=== PATIENT | female | born 1965 | race Caucasian/White ===

== ENCOUNTER 2019-07-19 09:23 | Emergency (ER) | payer OTHER ==
[~2019-07-19] VITALS: Ht 175 cm; Wt 80.4 kg
[2019-07-19] MEDS ORDERED: NS IV 1000 ML 1,000 ML IV SCH (10:05)
[2019-07-19] MEDS ORDERED: ONDANSETRON 4 MG/2 ML (SDV) Z0FRAN IVP ONE (10:15)
[2019-07-19] MEDS ORDERED: ACETAMINOPHEN 325 MG TABLET PO ONE (10:15)
--- NOTE | 2019-07-19 10:31 | Diagnostic Imaging Report ---
INDICATION: Hypertension. FINDINGS: Cardiomediastinal and hilar contours are normal. The lungs are clear. No pleural abnormality. No free air beneath the diaphragms. IMPRESSION: Negative. Dictated by: Dictated on workstation # [id number]
--- NOTE | 2019-07-19 10:49 | ED General ---
General Chief Complaint: General Problems/Pain Stated Complaint: ELEV BP History of Present Illness Date Seen by Provider: Jul 19, 2019 Time Seen by Provider: 09:50 Initial Comments The patient is a 54-year-old female with a history of hypertension who presents with multiple concerns today. She was sent over from the [facility] clinic for evaluation of elevated blood pressure however her blood pressure is not significantly elevated here. The patient's primary issue is lightheadedness and fatigue which has been present over at least the last week. She states she gets worn out walking around and feels lightheaded and as though she will faint, although she does not do so. Lightheadedness occurs in the setting of recent new prescriptions for multiple antihypertensive agents. Within the past few weeks the patient has been started on both nebivolol and lisinopril and was also briefly on hydrochlorothiazide which made her feel even more unwell and so it was discontinued. Per clinic notes she was on HCTZ initially, then was switched to Lisinopril 20mg daily a couple of weeks ago, upped to 40mg daily about a week ago and started on nebivolol 5mg daily 5 days ago in [facility] clinic. Before a few weeks ago she was not on any medications for her long-standing chronic hypertension. A few days ago the patient was in [place] and had a headache and felt more lightheaded than usual and went to an emergency department in that state where workup including labs and imaging was reportedly reassuring and the patient was given some IV labetalol and her lisinopril was increased to 40 mg daily from 20mg daily. Patient followed up in the office at [facility] on 07/15, 5 days ago, when nebivolol was started as a second agent for BP control. Patient has a secondary complaint of rather profuse watery diarrhea over the last week, about 8-10 episodes per day, in the setting of 2 successive rounds of antibiotics for dental infection. Over the past several weeks she has been on a course of amoxicillin and just a day or 2 ago completed a course of Augmentin. Her teeth are not bothering her anymore than usual today. There is associated quite intermittent right upper quadrant abdominal discomfort which the patient describes as "gallbladder attacks" when I ask her if she has any known gallstones she denies this and states she just assumed the problem was related to her gallbladder. She denies associated fevers, hematemesis, hematochezia, melena, headache since a week ago in [place], focal weakness, numbness, tingling, neck stiffness/pain/meningismus, vision changes, shortness of breath or chest pain of any kind, flank pain, back pain, dysuria or hematuria. Vital signs are generally appropriate here and clinically on initial evaluation patient is noted to have rather dry mucous membranes. Allergies and Home Medications Allergies Coded Allergies: Sulfa (Sulfonamide Antibiotics) (Verified Adverse Reaction, Unknown, nausea, 07/19/19) Patient Home Medication List Home Medication List Reviewed: Yes Review of Systems Review of Systems Constitutional: see HPI All Other Systems Reviewed Negative Unless Noted: Yes (Negative excepted noted.) Past Twhnxfn-Junzwc-Hskeiy Hx Past Med/Social Hx: Reviewed Nursing Past Med/Soc Hx Patient Social History Recent Foreign Travel: No Contact w/Someone Who Travel: No Family Medical History Reviewed Nursing Family Hx Physical Exam Vital Signs Vital Signs - First Documented 07/19/19 09:49 Temp 36.3 Pulse 67 Resp 16 B/P (MAP) 169/88 (115) Pulse Ox 100 Capillary Refill : Height, Weight, BMI Height: '" Weight: lbs. oz. kg; BMI Method: General Appearance: No Apparent Distress Comments This is an older female appearing nontoxic and in no acute distress. Head is normocephalic and atraumatic. Neck is supple and nontender. Oropharynx is mildly tacky with dry, cracked lips noted. Lungs are clear to auscultation at all stations. There is a normal S1 and S2 without rubs or gallops and capillary refill is appropriate, less than 2 seconds globally. Abdomen is soft, nondistended with very mild right upper quadrant tenderness without rebound or guarding. Skin is warm and dry without cyanosis, clubbing or edema. There is no dependent peripheral edema noted anywhere. Psychiatrically, the patient demonstrates appropriate mood and affect and is alert. Neurologically, patient moves all extremities equally, ambulated in with a narrow, steady gait and no lateralizing deficits are grossly noted. She is alert and oriented 4. Progress/Results/Core Measures Suspected Sepsis SIRS Temperature: Pulse: Respiratory Rate: Laboratory Tests 07/19/19 10:52: White Blood Count 9.1 Blood Pressure / Mean: Laboratory Tests 07/19/19 10:52: Creatinine 0.75, Platelet Count 346, Total Bilirubin 0.5 Results/Orders Lab Results Laboratory Tests Test 07/19/19 10:37 07/19/19 10:52 Range/Units Urine Color YELLOW Urine Clarity CLEAR Urine pH 7.5 5-9 Urine Specific [place] 1.010 L 1.016-1.022 Urine Protein NEGATIVE NEGATIVE Urine Glucose (UA) NEGATIVE NEGATIVE Urine Ketones NEGATIVE NEGATIVE Urine Nitrite NEGATIVE NEGATIVE Urine Bilirubin NEGATIVE NEGATIVE Urine Urobilinogen 0.2 < = 1.0 MG/DL Urine Leukocyte Esterase 1+ H NEGATIVE Urine RBC (Auto) TRACE H NEGATIVE Urine RBC 0-2 /HPF Urine WBC 5-10 H /HPF Urine Squamous Epithelial Cells 2-5 /HPF Urine Crystals NONE /LPF Urine Bacteria TRACE /HPF Urine Casts NONE /LPF Urine Mucus NEGATIVE /LPF Urine Culture Indicated YES Urine Test NEGATIVE NEGATIVE White Blood Count 9.1 4.3-11.0 10^3/uL Red Blood Count 5.26 4.35-5.85 10^6/uL Hemoglobin 15.5 11.5-16.0 G/DL Hematocrit 46 35-52 % Mean Corpuscular Volume 88 80-99 FL Mean Corpuscular Hemoglobin 29 25-34 PG Mean Corpuscular Hemoglobin Concent 33 32-36 G/DL Red Cell Distribution Width 13.7 10.0-14.5 % Platelet Count 346 130-400 10^3/uL Mean Platelet Volume 8.9 7.4-10.4 FL Neutrophils (%) (Auto) 71 42-75 % Lymphocytes (%) (Auto) 22 12-44 % Monocytes (%) (Auto) 6 0-12 % Eosinophils (%) (Auto) 1 0-10 % Basophils (%) (Auto) 0 0-10 % Neutrophils # (Auto) 6.5 1.8-7.8 X 10^3 Lymphocytes # (Auto) 2.0 1.0-4.0 X 10^3 Monocytes # (Auto) 0.6 0.0-1.0 X 10^3 Eosinophils # (Auto) 0.1 0.0-0.3 10^3/uL Basophils # (Auto) 0.0 0.0-0.1 10^3/uL Sodium Level 140 135-145 MMOL/L Potassium Level 4.3 3.6-5.0 MMOL/L Chloride Level 100 98-107 MMOL/L Carbon Dioxide Level 25 21-32 MMOL/L Anion Gap 15 H 5-14 MMOL/L Blood Urea Nitrogen 9 7-18 MG/DL Creatinine 0.75 0.60-1.30 MG/DL Estimat Glomerular Filtration Rate > 60 BUN/Creatinine Ratio 12 Glucose Level 100 70-105 MG/DL Calcium Level 10.3 H 8.5-10.1 MG/DL Corrected Calcium 9.9 8.5-10.1 MG/DL Total Bilirubin 0.5 0.1-1.0 MG/DL Aspartate Amino Transf (AST/SGOT) 15 5-34 U/L Alanine Aminotransferase (ALT/SGPT) 16 0-55 U/L Alkaline Phosphatase 43 40-136 U/L Troponin I < 0.30 <0.30 NG/ML Total Protein 8.0 6.4-8.2 GM/DL Albumin 4.5 3.2-4.5 GM/DL Lipase 98 H 8-78 U/L My Orders Orders - JOÃO ALEMAN MD Cbc With Automated Diff (07/19/19 10:05) Comprehensive Metabolic Panel (07/19/19 10:05) Lipase (07/19/19 10:05) Troponin I Fs (07/19/19 10:05) Ekg Tracing (07/19/19 10:05) Chest 1 View Ap/Pa Only (07/19/19 10:05) Ua Culture If Indicated (07/19/19 10:05) Hcg,Qualitative Urine (07/19/19 10:05) Stool Culture (07/19/19 10:05) C Difficile Ag + Toxin A/B. (07/19/19 10:05) Us Gallbladder [id number] (07/19/19 10:05) Ed Iv/Invasive Line Start (07/19/19 10:05) Ns Iv 1000 Ml (Sodium Chloride 0.9%) (07/19/19 10:05) Ondansetron Injection (Zofran Injectio (07/19/19 10:15) Acetaminophen Tablet/Caplet (Tylenol T (07/19/19 10:15) Fecal Wbc (07/19/19 10:07) Parasite Scrn Stool Giard Cryp (07/19/19 10:07) Rotavirus Antigen (07/19/19 10:07) Urine Culture (07/19/19 10:37) Medications Given in ED Current Medications Medications Dose Ordered Sig/Da Route Start Time Stop Time Status Last Admin Dose Admin Acetaminophen 975 mg ONCE ONCE PO 07/19/19 10:15 07/19/19 10:16 DC 07/19/19 11:24 975 MG Ondansetron HCl 4 mg ONCE ONCE IVP 07/19/19 10:15 07/19/19 10:16 DC 07/19/19 11:24 4 MG Vital Signs/I&O 07/19/19 09:49 Temp 36.3 Pulse 67 Resp 16 B/P (MAP) 169/88 (115) Pulse Ox 100 Capillary Refill : Progress Note : Time: 10:52 Progress Note Well-appearing 54yo female who appears clinically somewhat dehydrated who presents with concern for lightheadedness and fatigue in the setting of multiple new prescriptions for antihypertensive medications; she is currently on nebivolol and lisinopril. She has also been having rather copious watery diarrhea over at least the last week in the setting of 2 recent prescriptions for antibiotics for dental infection. Also incidentally noting rather elevated blood pressures on an ongoing basis but blood pressure not significantly elevated here and no signs or symptoms of acute end organ damage at this time. Overall impression is symptomatic lightheadedness secondary to new antihypertensive medications and diarrhea. We'll place IV and give IV fluids and medication for discomfort and nausea and will check labs, EKG, chest x-ray and a right upper quadrant ultrasound to further evaluate the patient's intermittent right upper quadrant discomfort, though rather low suspicion for acute cholecystitis or other acute process at this time. Will send stool studies to rule out C. difficile given recent antibiotic use. If workup is reassuring and the patient feels better, plan will be for discharge and referral back to clinic for very close follow-up of all of the above issues. Patient understands and agrees with this plan of care. Update 1215: Patient is resting comfortably in no acute distress upon reassessment and feels much, much better after 2 L of IV fluids here in the emergency department. Large workup is unremarkable for any evidence of acute process aside from possible evidence of mild urinary tract infection which we will treat with Macrobid. Stool studies not back at this time, as anticipated. Low suspicion for C. difficile at this time. We'll go ahead and prescribe some loperamide for diarrhea and refer the patient back to primary care clinic for very close follow-up, either later today or on Monday, for reevaluation of blood pressure and further care. We'll prescribe some Zofran for nausea. She is counseled to keep a blood pressure log until her primary care visit. The patient understands that if she feels worse is that of better or develops other new symptoms of concern that she should return to the emergency department right away for reevaluation. All questions are answered. ECG Comment Sinus rhythm, rate 64, no acute ST elevation or depression, IA 153, QRS 93, QTC 426, EP interpretation. Diagnostic Imaging Comments CHEST 1 VIEW AP/PA ONLY INDICATION: Hypertension. FINDINGS: Cardiomediastinal and hilar contours are normal. The lungs are clear. No pleural abnormality. No free air beneath the diaphragms. IMPRESSION: Negative. Dictated on workstation # [id number] PROCEDURE: US Gallbladder. TECHNIQUE: Multiple real-time grayscale images were obtained over the right upper quadrant in various projections. INDICATION: Elevated blood pressure FINDINGS: The liver parenchyma appeared normal. Patent hepatopetal directional portal venous flow confirmed. The gallbladder appeared normal. There is no intra or extrahepatic bile duct dilatation. At the level of the right renal pelvis there is a 1.7 cm shadowing stone without proximal hydronephrosis. The unobstructed right kidney appeared otherwise normal in size, cortical thickness and echotexture measuring 11.7 cm. The visualized portions of the pancreas unremarkable. Portions of its distal tail and lower head are obscured by gas. No ascites, no fluid collection. The visualized portions of aorta nonaneurysmal. IMPRESSION: 1.7 cm right renal calculus without hydronephrosis. No hepatobiliary abnormality or ascites. Dictated on workstation # [id number] Departure Impression Primary Impression: Lightheadedness Additional Impressions: Diarrhea Qualified Codes: R19.7 - Diarrhea, unspecified Dehydration Acute cystitis without hematuria Disposition: HOME, SELF-CARE Condition: Improved Departure-Patient Inst. Referrals: SELF,LULA BECKHAM (PCP/Family) Primary Care Physician Patient Instructions: Urinary Tract Infection, Adult (DC), Dehydration, Adult (DC), Diarrhea in Adolescents and Adults Add. Discharge Instructions: Please follow up with your primary care physician in the clinic in the next 2-4 days as discussed. We are going to try to make you a follow-up appointment. You will need to readdress her blood pressure management as well as your other symptoms with your doctor. Please use the medication as prescribed for diarrhea and nausea. Drink plenty of fluids. We will contact you if your stool studies are positive for anything which needs to be treated. Return to the emergency department right away with worsening symptoms or other new concerns. Scripts Nitrofurantoin Monohyd/M-Cryst (Macrobid 100 mg Capsule) 100 Mg Capsule 1 TAB PO BID, #10 CAP Prov: JOÃO ALEMAN MD 07/19/19 Ondansetron (Ondansetron Odt) 4 Mg Tab.rapdis 4 MG PO Q8H for nausea, #10 TAB Prov: JOÃO AELMAN MD 07/19/19 Loperamide HCl (Loperamide) 2 Mg Tablet 2 MG PO Q4H for Diarrhea, #10 TAB Prov: JOÃO ALEMAN MD 07/19/19 JOÃO ALEMAN MD Jul 19, 2019 10:49
--- NOTE | 2019-07-19 10:56 | Diagnostic Imaging Report ---
PROCEDURE: US Gallbladder. TECHNIQUE: Multiple real-time grayscale images were obtained over the right upper quadrant in various projections. INDICATION: Elevated blood pressure FINDINGS: The liver parenchyma appeared normal. Patent hepatopetal directional portal venous flow confirmed. The gallbladder appeared normal. There is no intra or extrahepatic bile duct dilatation. At the level of the right renal pelvis there is a 1.7 cm shadowing stone without proximal hydronephrosis. The unobstructed right kidney appeared otherwise normal in size, cortical thickness and echotexture measuring 11.7 cm. The visualized portions of the pancreas unremarkable. Portions of its distal tail and lower head are obscured by gas. No ascites, no fluid collection. The visualized portions of aorta nonaneurysmal. IMPRESSION: 1.7 cm right renal calculus without hydronephrosis. No hepatobiliary abnormality or ascites. Dictated by: Dictated on workstation # [id number]
[2019-07-19 11:30] LABS: BASOPHILS % (AUTO) 0 % (0-10); EOSINOPHILS # (AUTO) 0.1 10^3/uL (0.0-0.3); EOSINOPHILS % (AUTO) 1 % (0-10); HEMATOCRIT 46 % (35-52); HEMOGLOBIN 15.5 G/DL (11.5-16.0); LYMPHOCYTES % (AUTO) 22 % (12-44); MEAN CORPUSCULAR HEMOGLOBIN 29 PG (25-34); MEAN CORPUSCULAR HGB CONC 33 G/DL (32-36); MEAN CORPUSCULAR VOLUME 88 FL (80-99); MEAN PLATELET VOLUME 8.9 FL (7.4-10.4); MONOCYTES # (AUTO) 0.6 X 10^3 (0.0-1.0); MONOCYTES % (AUTO) 6 % (0-12); NEUTROPHILS # (AUTO) 6.5 X 10^3 (1.8-7.8); NEUTROPHILS % (AUTO) 71 % (42-75); PLATELET COUNT 346 10^3/uL (130-400); RED CELL DISTRIBUTION WIDTH 13.7 % (10.0-14.5); WHITE BLOOD COUNT 9.1 10^3/uL (4.3-11.0)
[2019-07-19 11:38] LABS: CLARITY,URINE CLEAR; COLOR,URINE YELLOW; PH,URINE 7.5 (5-9)
[2019-07-19 11:39] LABS: BACTERIA,URINE TRACE /HPF; BILIRUBIN,URINE NEGATIVE (NEGATIVE); GLUCOSE, URINE (UA) NEGATIVE (NEGATIVE); KETONES,URINE NEGATIVE (NEGATIVE); LEUKOCYTE ESTERASE ,URINE 1+ (NEGATIVE); NITRITE,URINE NEGATIVE (NEGATIVE); PROTEIN,URINE NEGATIVE (NEGATIVE); RBC,URINE 0-2 /HPF
[2019-07-19 11:54] LABS: ALANINE AMINOTRANSFERASE 16 U/L (0-55); ALKALINE PHOSPHATASE 43 U/L (40-136); BILIRUBIN,TOTAL 0.5 MG/DL (0.1-1.0); BUN/CREATININE RATIO 12; CALCIUM 10.3 MG/DL (8.5-10.1); CARBON DIOXIDE 25 MMOL/L (21-32); CHLORIDE 100 MMOL/L (98-107); CREATININE SERUM 0.75 MG/DL (0.60-1.30); GFR ESTIMATED > 60; GLUCOSE 100 MG/DL (70-105); POTASSIUM 4.3 MMOL/L (3.6-5.0); SODIUM 140 MMOL/L (135-145)
[2019-07-19 11:55] LABS: ALBUMIN 4.5 GM/DL (3.2-4.5); LIPASE 98 U/L (8-78)
[2019-07-19] MEDS ORDERED: LOPE2TAB34 PO (12:33)
[2019-07-19] MEDS ORDERED: NITR-65 PO (12:33)
[2019-07-19] MEDS ORDERED: ONDA4TAB11 PO (12:33)
--- NOTE | 2019-07-19 12:50 | NUR ---
Appointment made with Dr Rodriguez for 1029.
[2019-07-19 12:55] VITALS: BP 176/84
== END 2019-07-19 13:02 | disposition home or self-care (01) ==
LOC: ER FS 09:26
DX: R42 Dizziness and giddiness (principal); R19.7 Diarrhea, unspecified; E86.0 Dehydration; N30.00 Acute cystitis without hematuria; I10 Essential (primary) hypertension; Z88.2 Allergy status to sulfonamides
CPT/HCPCS: 36415; 71045; 76705; 80053; 81000; 83690; 84484; 84703; 85025; 87015; 87045; 87046; 87088; 87324; 87328; 87329; 87425; 87449; 87899; 93005; 96374

== ENCOUNTER → 2019-08-02 | Outpatient (CLI) | payer OTHER ==
[~2019-08-02] MED LIST: LOPE2TAB34 PO; NITR-65 PO; ONDA4TAB11 PO
== END ==
LOC: CARD 12:41
PROVIDERS: ATTEND Internal Medicine Cardiovascular Disease
DX: I07.1 Rheumatic tricuspid insufficiency (principal); I10 Essential (primary) hypertension; E78.2 Mixed hyperlipidemia; E66.01 Morbid (severe) obesity due to excess calories; Z82.49 Family history of ischemic heart disease and other diseases of the circulatory system
CPT/HCPCS: 93306